=== PATIENT | male | born 1960 | race Caucasian/White ===

== ENCOUNTER 2018-04-10 07:37 | Inpatient (IN) | payer MEDICAID ==
[~2018-04-10] VITALS: Ht 167.6 cm; Wt 87.3 kg
[2018-04-10 08:41] LABS: BASOPHIL % 0.3 % (0-2); PLATELET COUNT 226 x10^3mcL (130-400); RED CELL DISTRIBUTION WIDTH 13.4 % (11.5-14.5)
[2018-04-10 08:52] LABS: CALCIUM 7.7 mg/dL (8.5-10.1); CARBON DIOXIDE 24.8 mmol/L (21-32); CREATININE SERUM 1.6 mg/dL (0.7-1.3); POTASSIUM SERUM 3.7 mmol/L (3.5-5.1)
[2018-04-10 08:57] LABS: ALBUMIN 3.4 g/dL (3.4-5.0); BILIRUBIN TOTAL 0.6 mg/dL (0.20-1.00); TOTAL PROTEIN, SERUM 6.7 g/dL (6.4-8.2)
[2018-04-10 09:47] LABS: MAGNESIUM 2.1 mg/dL (1.8-2.4); PHOSPHOROUS 3.7 mg/dL (2.5-4.9)
[2018-04-10 09:52] VITALS: Ht 167.6 cm; Wt 87.3 kg
[2018-04-10 10:07] LABS: FREE T4 0.94 ng/dL (0.76-1.46); FREE THYROXINE INDEX 2.2 ug/dL (1.4-4.5); T4(THYROXINE) 6.1 ug/dL (4.7-13.3)
[2018-04-10 10:13] LABS: T3 TOTAL 0.86 ng/mL
[2018-04-10 10:14] LABS: UA SPECIFIC GRAVITY >=1.030 (1.005-1.035); microscopic required? YES; urine erythrocyte 1+ (NEGATIVE)
[2018-04-10 10:36] LABS: AMPHETAMINE QUAL UR NONE DETECTED (NEG <=1000)
[2018-04-10 12:40] VITALS: BP 159/98
[2018-04-10 13:23] VITALS: BP 160/88
[2018-04-10 18:06] VITALS: BP 161/87
[2018-04-10 21:53] VITALS: BP 122/76
[2018-04-11 06:40] VITALS: BP 144/84
[2018-04-11 06:42] LABS: BASOPHIL % 0.4 % (0-2); PLATELET COUNT 191 x10^3mcL (130-400); RED CELL DISTRIBUTION WIDTH 13.7 % (11.5-14.5)
[2018-04-11 07:05] LABS: CALCIUM 7.6 mg/dL (8.5-10.1); CARBON DIOXIDE 24.7 mmol/L (21-32); MAGNESIUM 2.2 mg/dL (1.8-2.4); PHOSPHOROUS 3.1 mg/dL (2.5-4.9); POTASSIUM SERUM 4.1 mmol/L (3.5-5.1)
[2018-04-11 09:47] VITALS: BP 138/80; BP 154/89
[2018-04-11 13:20] VITALS: BP 165/89
[2018-04-11 14:00] VITALS: BP 141/84
[2018-04-11 19:30] VITALS: BP 171/83
[2018-04-11 21:15] VITALS: BP 144/87
[2018-04-12 05:34] VITALS: BP 139/81
[2018-04-12 06:01] LABS: BASOPHIL % 0.1 % (0-2); PLATELET COUNT 192 x10^3mcL (130-400); RED CELL DISTRIBUTION WIDTH 13.6 % (11.5-14.5)
[2018-04-12 06:30] LABS: CALCIUM 7.9 mg/dL (8.5-10.1); CARBON DIOXIDE 25.2 mmol/L (21-32); CREATININE SERUM 2.1 mg/dL (0.7-1.3); MAGNESIUM 2.2 mg/dL (1.8-2.4); PHOSPHOROUS 3.3 mg/dL (2.5-4.9)
[2018-04-12 09:32] VITALS: BP 155/86
[2018-04-12 17:28] VITALS: BP 170/93
[2018-04-12 21:51] VITALS: BP 182/91
[2018-04-13 00:39] VITALS: BP 169/97
[2018-04-13 05:57] LABS: CALCIUM 8.2 mg/dL (8.5-10.1); POTASSIUM SERUM 4.3 mmol/L (3.5-5.1)
[2018-04-13 06:01] VITALS: BP 164/93
[2018-04-13 06:27] LABS: BASOPHIL % 0.3 % (0-2); PLATELET COUNT 197 x10^3mcL (130-400); RED CELL DISTRIBUTION WIDTH 13.7 % (11.5-14.5)
[2018-04-13 09:41] VITALS: BP 159/92
[2018-04-13 09:52] VITALS: BP 157/90; BP 159/92
[2018-04-13] MEDS ORDERED: NOR5 PO (10:09)
[2018-04-13] MEDS ORDERED: FLO4 PO (10:09)
[2018-04-13] MEDS ORDERED: LIPI20 PO (10:09)
[2018-04-13] MEDS ORDERED: ECO81 PO (10:10)
[2018-04-13] MEDS ORDERED: LAC PO (10:11)
[2018-04-13] MEDS ORDERED: LEVAQUIN250 M1 PO (10:12)
[2018-04-13 11:14] VITALS: BP 152/96
== END 2018-04-13 13:26 | disposition home or self-care (01) | DRG 465 ==
LOC: ED 07:37 → MU 08:24 → DU 08:24 → MU 09:08 → DU 09:30 → MU 04-11 19:20
PROVIDERS: Emergency Medicine; Family Medicine; Family Medicine Sports Medicine
DX: N13.2 Hydronephrosis with renal and ureteral calculous obstruction (principal); N17.0 Acute kidney failure with tubular necrosis; J98.11 Atelectasis; I10 Essential (primary) hypertension; E83.51 Hypocalcemia; K57.90 Diverticulosis of intestine, part unspecified, without perforation or abscess without bleeding; D64.9 Anemia, unspecified; E87.1 Hypo-osmolality and hyponatremia; E78.5 Hyperlipidemia, unspecified; D72.829 Elevated white blood cell count, unspecified; K76.0 Fatty (change of) liver, not elsewhere classified
CPT/HCPCS: 83880; 84439; 94150; J0696; J1885; J2405; J3010; J7030; Q0092